=== PATIENT | male | born 1970 | race Caucasian/White ===

== ENCOUNTER 2023-08-29 14:47 | Outpatient (AMB) | payer OTHER, SELFPAY ==
[2023-08-29 15:01] VITALS: BP 114/80; PULSE 80; O2SAT 95; BMI 30.3
--- NOTE | 2023-08-29 15:01 | HO.NEPHOV_ITS ---
HPI HPI Comments History of Present Illness Details I had the delight of seeing James in consultation for labile blood pressure. 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 He has been having left-sided chest pain with arm pain and was seen in [facility] and [facility] emergency room. It was deemed as musculoskeletal pain by both emergency rooms after obtaining EKG enzymes and routine blood work. His blood pressure at times was on the higher side but has come down with improvement in pain. He has not gone for physical therapy yet. He denies smoking or drug use. He consumes excess amount of salt and beer. He does not have any shortness of breath, proximal nocturnal dyspnea, orthopnea, pedal edema, urinary symptoms. His renal functions have been normal. He is not known to have any proteinuria, hypokalemia or hypercalcemia. He has no uncontrolled thyroid disorders. His thinks he snores a lot especially when he drinks heavily. He also had been getting some headache in the nape of the neck when his blood pressure was going up which is not bear the time of this office visit. He has not seen his primary care physician for a while. [facility] Medical History (Updated 08/29/23 @ 15:54 by Zen Donnelly MD) Hypertension Surgical History (Updated 08/29/23 @ 15:06 by Ifrah Roa MA) Hx of appendectomy Family History (Updated 08/29/23 @ 15:06 by Ifrah Roa MA) Mother Colon cancer Social History (Updated 08/29/23 @ 15:06 by Ifrah Roa MA) Alcohol intake: current Patient Tobacco Use Status: Never used Tobacco Vital Signs 08/29/23 15:01 Height 5 ft 9 in Weight 205 lb 6 oz BMI 30.3 BP 114/80 Blood Pressure Location Lt brachial Position Sitting Pulse 80 Pulse Source Pulse Oximeter Pulse Oximetry (%) 95 Oxygen Delivery Method Room Air Physical Exam Vital Signs: Last Vital Signs Pulse 80 08/29/23 15:01 BP 114/80 08/29/23 15:01 Pulse Ox 95 08/29/23 15:01 Oxygen Delivery Method Room Air 08/29/23 15:01 BMI result Body Mass Index 30.3 Const General: comfortable and no acute distress Orientation/consciousness: patient oriented x3 HEENT Head: Yes normocephalic Mouth: Normal oral and palatal mucosa present Eyes EOM: EOMs intact bilaterally Neck Neck: Yes supple Resp Auscultation: clear to auscultation bilaterally Cardio Jugular venous distension: no JVD Rate: regular rate GI Palpation (GI): Soft to palpation Auscultation: normal bowel sounds General: Yes no CVA tenderness Back/Spine/Pelvis Back: no CVA tenderness Skin General skin exam: no rashes or lesions noted Neuro General: patient oriented x3 and moves all extremities Extrem General: Yes no pedal edema Assessment & Plan Assessment & Plan (1) 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 He denies using excessive nonsteroidal anti-inflammatory medications. He consumes excess salt and drinks a lot of beer. He has gained some weight. His renal functions have been normal. He does not have any retinopathy, nephropathy ventricular hypertrophy or proteinuria. His repeat blood pressure by me in the office was 130/80 mm Hg left arm sitting position. I asked him to lose weight, cut back sodium in the diet and cut back drinking beer. He is not a smoker and has no peripheral arterial disease. I did not initiate him on any medications but will do further workup including 24 hour blood pressure monitor in the near future based on evolving clinical data. I answered all his and his 's questions. Follow-up given. Coding Level of Care Code New Pt Level 4 (01513) Diagnoses Labile hypertension due to clinical environment R09.89 Results Reviewed Nephrology Results: No Data to Display
== END 2023-08-29 15:38 | disposition home or self-care (01) ==
PROVIDERS: PCP Internal Medicine; Visit Provider Internal Medicine Nephrology
DX: R09.89 Other specified symptoms and signs involving the circulatory and respiratory systems (principal)
CPT/HCPCS: 99204

== ENCOUNTER → 2023-08-29 14:47 | Outpatient (BNVA) | payer OTHER, SELFPAY | PROVIDERS: PCP Internal Medicine; Visit Provider Internal Medicine Nephrology ==

== ENCOUNTER 2023-12-05 15:54 | Outpatient (AMB) | payer OTHER, SELFPAY ==
--- NOTE | 2023-12-05 16:24 | HO.NEPHOV ---
Vital Signs 12/05/23 16:26 Height 5 ft 9 in Weight 199 lb 8 oz BMI 29.5 BP 120/80 Blood Pressure Location Lt brachial Position Sitting Pulse 77 Pulse Source Pulse Oximeter Pulse Oximetry (%) 96 Oxygen Delivery Method Room Air Intake Visit Reasons: Uncontrollable BP/ Confirmed Straight Cutter Required: No Accompanied by: Spouse Allergies No Known Allergies Allergy (Verified 12/05/23 16:28) HPI Comments Details: I had the delight of seeing James in follow up for labile blood pressure. 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 He had left-sided chest pain with arm pain and was seen in [facility] emergency room. It was deemed as musculoskeletal pain by both emergency rooms after obtaining EKG enzymes and routine blood work. His blood pressure at times was on the higher side but has come down with improvement in pain. He has not gone for physical therapy yet. He denies smoking or drug use. He consumes excess amount of salt and beer. He does not have any shortness of breath, proximal nocturnal dyspnea, orthopnea, pedal edema, urinary symptoms. His renal functions have been normal. He is not known to have any proteinuria, hypokalemia or hypercalcemia. He has no uncontrolled thyroid disorders. His thinks he snores a lot especially when he drinks heavily. [facility] Medical History (Updated 08/29/23 @ 15:54 by Zne Donnelly MD) Hypertension Surgical History Hx of appendectomy Family History Mother Colon cancer Social History Alcohol intake: current Patient Tobacco Use Status: Never used Tobacco Physical Exam Vital Signs: Last Vital Signs Pulse 77 12/05/23 16:26 BP 120/90 H 12/05/23 16:26 Pulse Ox 96 12/05/23 16:26 Oxygen Delivery Method Room Air 12/05/23 16:26 BMI result Body Mass Index 29.5 Const General: comfortable and no acute distress Orientation/consciousness: patient oriented x3 HEENT Head: Yes normocephalic Mouth: Normal oral and palatal mucosa present Eyes EOM: EOMs intact bilaterally Neck Neck: Yes supple Resp Auscultation: clear to auscultation bilaterally Cardio Jugular venous distension: no JVD Rate: regular rate GI Palpation (GI): Soft to palpation Auscultation: normal bowel sounds General: Yes no CVA tenderness Back/Spine/Pelvis Back: no CVA tenderness Skin General skin exam: no rashes or lesions noted Neuro General: patient oriented x3 and moves all extremities Extrem General: Yes no pedal edema Results Reviewed Nephrology Results: No Data to Display Assessment & Plan Assessment & Plan (1) Labile hypertension due to clinical environment: Code(s): R09.89 - Other specified symptoms and signs involving the circulatory and respiratory systems Category: Medical Plan James has had multiple high blood pressure readings especially when he had arm pain. He denies using excessive nonsteroidal anti-inflammatory medications. He consumes excess salt and drinks a lot of beer. He has gained some weight which he needs lose. His renal functions have been normal. He does not have any retinopathy, nephropathy ventricular hypertrophy or proteinuria. I asked him to lose weight, cut back sodium in the diet and cut back drinking beer. He is not a smoker and has no peripheral arterial disease. I did not initiate him on any medications but will do further workup including 24 hour blood pressure monitor in the near future based on evolving clinical data. I answered all his and his 's questions. Follow-up given Coding Level of Care Code Est Pt Level 4 (08760) Diagnoses Labile hypertension due to clinical environment R09.89
[2023-12-05 16:26] VITALS: BP 120/80; PULSE 77; O2SAT 96; BMI 29.5
== END 2023-12-05 16:55 | disposition home or self-care (01) ==
PROVIDERS: PCP Internal Medicine; Visit Provider Internal Medicine Nephrology
DX: R09.89 Other specified symptoms and signs involving the circulatory and respiratory systems (principal)
CPT/HCPCS: 99214

== ENCOUNTER → 2023-12-05 15:54 | Outpatient (BNVA) | payer OTHER, SELFPAY | PROVIDERS: PCP Internal Medicine; Visit Provider Internal Medicine Nephrology ==

== ENCOUNTER 2024-05-29 08:48 | Outpatient (REF) | payer OTHER, SELFPAY ==
[2024-05-29 11:12] LABS: MANUAL DIFF FLAG NO
[2024-05-29 11:17] LABS: Basophils Absolute Auto 0.1 X10*3/uL (0.0-0.2); Basophils Percent Auto 0.9 % (0-2); Eosinophils Absolute Auto 0.2 X10*3/uL (0.0-0.4); Eosinophils Percent Auto 3.6 % (0-4); Hematocrit 40.4 % (42.0-52.0); Hemoglobin 13.6 g/dl (14.0-18.0); Imm Gran Abs Auto 0.03 X10*3/uL (0.00-0.03); Imm Gran Pct Auto 0.5 % (0.0-0.4); Lymphocytes Absolute Auto 2.5 X10*3/uL (1.2-4.9); Lymphocytes Percent Auto 44.1 % (20-40); Mean Corpuscular HGB Conc 33.7 g/dl (31.0-36.0); Mean Corpuscular Hemoglobin 29.2 pg (27.0-33.0); Mean Corpuscular Volume 86.7 fL (80.0-98.0); Mean Platelet Volume 10.2 fL (9.4-12.4); Monocytes Absolute Auto 0.7 X10*3/uL (0.1-1.2); Monocytes Percent Auto 11.7 % (2-11); Neutrophils Absolute Auto 2.2 x10*3/uL (2.0-8.3); Neutrophils Percent Auto 39.2 % (45-73); Platelet Count 418 X10*3/uL (160-400); Red Blood Count 4.66 X10*6/uL (4.60-5.80); Red Cell Distribution Width 12.6 % (11.0-16.0); White Blood Count 5.6 X10*3/uL (4.8-10.8)
[2024-05-29 11:29] LABS: Estimated Average Glucose 105 mg/dL; Hemoglobin A1C 119.9909 umol/L; Hemoglobin A1c % 5.3 % (<6.0); Total Hemoglobin (HGBA1C) 3500.8121 umol/L
[2024-05-29 12:25] LABS: Alanine Aminotransferase 46 U/L (0-40); Alkaline Phosphatase 77 U/L (39-117); Anion Gap 12 (12-20); Aspartate Amino Transferase 33 U/L (5-37); Bilirubin Total 0.4 mg/dL (0.0-1.0); Blood Urea Nitrogen 15 mg/dL (9-16); Calcium 9.2 mg/dL (8.4-10.2); Carbon Dioxide 26 mmol/L (22-29); Chloride 106 mmol/L (96-108); Cholesterol 152 mg/dL (<200); Estimated Glomerular Filt Rate > 60; Glucose Random 96 mg/dL (60-115); HDL Cholesterol 56 mg/dL (>40); LDL Cholesterol Calculated 84 mg/dL (<100); Potassium 4.2 mmol/L (3.3-5.1); Sodium 140 mmol/L (135-145); Total Protein 7.4 g/dL (6.5-8.0); Triglycerides 62 mg/dL (<150)
[2024-05-29 12:42] LABS: TSH reflex Free T4 2.96 uIU/mL (0.32-4.0)
[2024-05-29 12:44] LABS: HIV AB/AG Nonreactive (Nonreactive); HIV Num 1 0.04 S/CO (0.00-0.99); ~HepC Num1 0.16 S/CO (0.00-0.79); ~Hepatitis C Antibody Nonreactive (Nonreactive)
== END 2024-05-29 08:49 | disposition home or self-care (01) ==
LOC: HO.HHCL 08:48
PROVIDERS: Visit Provider Internal Medicine
DX: Z00.00 Encounter for general adult medical examination without abnormal findings (principal); Z13.1 Encounter for screening for diabetes mellitus; Z13.89 Encounter for screening for other disorder
CPT/HCPCS: 36415; 80053; 80061; 82306; 83036; 84443; 85025; 86803; 87389

== ENCOUNTER 2024-06-04 15:54 | Outpatient (AMB) | payer OTHER, SELFPAY ==
--- NOTE | 2024-06-04 16:04 | HO.NEPHOV_ITS ---
Vital Signs 06/04/24 16:07 Height 5 ft 9 in Weight 203 lb 2 oz BMI 30.0 BP 122/80 Blood Pressure Location Lt brachial Position Sitting Pulse 75 Pulse Source Pulse Oximeter Pulse Oximetry (%) 96 Oxygen Delivery Method Room Air Intake Visit Reasons: 6 mon follow up-Conf Photographic Double Required: No Accompanied by: Self / Same As Patient Allergies No Known Allergies Allergy (Verified 06/04/24 16:09) HPI Comments Details: I had the delight of seeing James in follow up for labile blood pressure. 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 He denies smoking or drug use. He consumes excess amount of salt and beer. He does not have any shortness of breath, proximal nocturnal dyspnea, orthopnea, pedal edema, urinary symptoms. His renal functions have been normal. He is not known to have any proteinuria, hypokalemia or hypercalcemia. He has no uncontrolled thyroid disorders. His thinks he snores a lot especially when he drinks heavily. [facility] Medical History (Updated 08/29/23 @ 15:54 by Zen Donnelly MD) Hypertension Surgical History Hx of appendectomy Family History Mother Colon cancer Social History Alcohol intake: current Patient Tobacco Use Status: Never used Tobacco Review of Systems Const All systems reviewed & are unremarkable except as noted in HPI and below Physical Exam Vital Signs: Last Vital Signs Pulse 75 06/04/24 16:07 BP 122/80 06/04/24 16:07 Pulse Ox 96 06/04/24 16:07 Oxygen Delivery Method Room Air 06/04/24 16:07 BMI result Body Mass Index 30.0 Const General: comfortable and no acute distress Orientation/consciousness: patient oriented x3 HEENT Head: Yes normocephalic Mouth: Normal oral and palatal mucosa present Eyes EOM: EOMs intact bilaterally Neck Neck: Yes supple Resp Auscultation: clear to auscultation bilaterally Cardio Jugular venous distension: no JVD Rate: regular rate GI Palpation (GI): Soft to palpation Auscultation: normal bowel sounds General: Yes no CVA tenderness Back/Spine/Pelvis Back: no CVA tenderness Skin General skin exam: no rashes or lesions noted Neuro General: patient oriented x3 and moves all extremities Extrem General: Yes no pedal edema Results Reviewed Nephrology Results: Hgb 13.6 g/dl (14.0-18.0) L 05/29/24 WBC 5.6 X10*3/uL (4.8-10.8) 05/29/24 Plt Count 418 X10*3/uL (160-400) H 05/29/24 Sodium 140 mmol/L (135-145) 05/29/24 Potassium 4.2 mmol/L (3.3-5.1) 05/29/24 Chloride 106 mmol/L (96-108) 05/29/24 Carbon Dioxide 26 mmol/L (22-29) 05/29/24 BUN 15 mg/dL (9-16) 05/29/24 Creatinine 0.84 mg/dL (0.5-1.4) 05/29/24 Calcium 9.2 mg/dL (8.4-10.2) 05/29/24 Assessment & Plan Assessment & Plan (1) Labile hypertension due to clinical environment: Code(s): R09.89 - Other specified symptoms and signs involving the circulatory and respiratory systems Category: Medical Plan James has had multiple high blood pressure readings in the past especially when he had arm pain. He denies using excessive nonsteroidal anti-inflammatory medications. He consumes excess salt and drinks a lot of beer. His renal functions have been normal. He does not have any retinopathy, nephropathy ventricular hypertrophy or proteinuria. I asked him to lose weight, cut back sodium in the diet and cut back drinking beer. He is not a smoker and has no peripheral arterial disease. I did not initiate him on any medications but will do further workup including 24 hour blood pressure monitor in the near future based on evolving clinical data. I answered all his questions. Follow-up given Coding Level of Care Code Est Pt Level 4 (23036) Diagnoses Labile hypertension due to clinical environment R09.89
[2024-06-04 16:07] VITALS: BP 122/80; PULSE 75; O2SAT 96
== END 2024-06-04 16:20 | disposition home or self-care (01) ==
LOC: HO.HKAS 15:55
PROVIDERS: PCP Internal Medicine; Visit Provider Internal Medicine Nephrology
DX: R09.89 Other specified symptoms and signs involving the circulatory and respiratory systems (principal)
CPT/HCPCS: 99214

== ENCOUNTER → 2024-06-04 15:54 | Outpatient (BNVA) | payer OTHER, SELFPAY | PROVIDERS: PCP Internal Medicine; Visit Provider Internal Medicine Nephrology ==

== ENCOUNTER 2024-12-05 15:50 | Outpatient (AMB) | payer OTHER, SELFPAY ==
--- NOTE | 2024-12-05 15:52 | HO.NEPHOV_ITS ---
Vital Signs 12/05/24 15:54 Height 5 ft 9 in Weight 202 lb BMI 29.8 BP 130/80 Blood Pressure Location Lt brachial Position Sitting Pulse 76 Pulse Source Pulse Oximeter Pulse Oximetry (%) 96 Oxygen Delivery Method Room Air Intake Visit Reasons: 6mon follow up-Conf Cleaner Furniture Required: No Accompanied by: Self / Same As Patient Allergies No Known Allergies Allergy (Verified 12/05/24 15:53) HPI Comments Details: I had the delight of seeing James in follow up for labile blood pressure. 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 He denies smoking or drug use. He consumes excess amount of salt and beer. He does not have any shortness of breath, proximal nocturnal dyspnea, orthopnea, pedal edema, urinary symptoms. His renal functions have been normal. He is not known to have any proteinuria, hypokalemia or hypercalcemia. He has no uncontrolled thyroid disorders. His thinks he snores a lot especially when he drinks heavily. [facility] Medical History (Updated 08/29/23 @ 15:54 by Zen Donnelly MD) Hypertension Surgical History Hx of appendectomy Family History Mother Colon cancer Social History Alcohol intake: current Patient Tobacco Use Status: Never used Tobacco Review of Systems Const All systems reviewed & are unremarkable except as noted in HPI and below Physical Exam Vital Signs: Last Vital Signs Pulse 76 12/05/24 15:54 BP 130/80 12/05/24 15:54 Pulse Ox 96 12/05/24 15:54 Oxygen Delivery Method Room Air 12/05/24 15:54 BMI result Body Mass Index 29.8 Const General: comfortable and no acute distress Orientation/consciousness: patient oriented x3 HEENT Head: Yes normocephalic Mouth: Normal oral and palatal mucosa present Eyes EOM: EOMs intact bilaterally Neck Neck: Yes supple Resp Auscultation: clear to auscultation bilaterally Cardio Jugular venous distension: no JVD Rate: regular rate GI Palpation (GI): Soft to palpation Auscultation: normal bowel sounds General: Yes no CVA tenderness Back/Spine/Pelvis Back: no CVA tenderness Skin General skin exam: no rashes or lesions noted Neuro General: patient oriented x3 and moves all extremities Extrem General: Yes no pedal edema Results Reviewed Nephrology Results: Hgb 13.6 g/dl (14.0-18.0) L 05/29/24 WBC 5.6 X10*3/uL (4.8-10.8) 05/29/24 Plt Count 418 X10*3/uL (160-400) H 05/29/24 Sodium 140 mmol/L (135-145) 05/29/24 Potassium 4.2 mmol/L (3.3-5.1) 05/29/24 Chloride 106 mmol/L (96-108) 05/29/24 Carbon Dioxide 26 mmol/L (22-29) 05/29/24 BUN 15 mg/dL (9-16) 05/29/24 Creatinine 0.84 mg/dL (0.5-1.4) 05/29/24 Calcium 9.2 mg/dL (8.4-10.2) 05/29/24 Assessment & Plan Assessment & Plan (1) Labile hypertension due to clinical environment: Code(s): R09.89 - Other specified symptoms and signs involving the circulatory and respiratory systems Category: Medical Plan James has had multiple high blood pressure readings in the past especially when he had arm pain. He denies using excessive nonsteroidal anti-inflammatory medications. He consumes excess salt and drinks a lot of beer. His renal functions have been normal. He does not have any retinopathy, nephropathy ventricular hypertrophy or proteinuria. I asked him to lose weight, cut back sodium in the diet and cut back drinking beer. He is not a smoker and has no peripheral arterial disease. I did not initiate him on any medications but will do further workup including 24 hour blood pressure monitor in the near future based on evolving clinical data. I answered all his questions. Follow-up given Coding Level of Care Code Est Pt Level 4 (41990) Diagnoses Labile hypertension due to clinical environment R09.89
[2024-12-05 15:54] VITALS: BP 130/80; PULSE 76; O2SAT 96; BMI 29.8
--- OUTSIDE RECORDS SUMMARY | 2024-12-05 17:24 | XMS_ITS | Clinical Summary ---
Author Organization [employer] Address [address] [place] [address] Care Team Providers Care Cognos Consultant Name Role Phone Radha Cook MD Primary Care Provide r Allergies No known active allergies Medications Blood Pressure Monitoring (Blood Pressure Cuff) miscIndications: Elevated blood pressure reading 1 each Once daily. 1 each 05/23/2024 Active Active Problems Problem Noted Date Diagnosed Date Colon cancer screening 05/23/2024 Elevated blood pressure reading 05/23/2024 Assessment & Plan (05/23/2024 12:22 PM EDT): Monitor BP at home and log it I advise low na diet and weight reduction RTC 2 weeks Health care maintenance 05/23/2024 Pain of right heel 05/23/2024 Immunizations Name Administration Dates Next Due Influenza, seasonal, injectable, preservative fr ee 05/23/2024 Pfizer Covid-19 Vaccine 12+ 05/23/2024 Social History Tobacco Use Types Packs/Day Years Used Date Smoking Tobacco: Never Passive Smoke Exposure: Never Smokeless Tobacco: Never Tobacco Cessation:Counseling Given: Not Answered Alcohol Use Standard Drinks/Week Comments Never 0 (1 standard drink = 0.6 oz pur e alcohol) Alcohol Answer Date Recorded How often do you have a drink containing alcohol ? 2 05/23/2024 How many drinks containing a lcohol do you have on a typical day when you are drinking? 1 05/23/2024 How often do you have six or more drinks on one occasion? 1 05/23/2024 Score 1 05/23/2024 Depression Answer Date Recorded Patient Health Questionnaire-9 Score 0 05/23/2024 Patient Health Questionnaire-9 Score 0 05/23/2024 Last PHQ-9: Questionnaire Data Not on file 1 Housing Stability Answer Date Recorded What is your housing situation today? I have bella haines 05/23/[address] you li ve. Do you have problems with any of the following? None of the above 05/23/2024 Food Insecurity Answer Date Recorded Within the past 12 months, y ou worried that your food would run out before you got money to buy more: Never True 05/23/2024 Within the past 12 months,th e food you bought just didn't last and you didn't have enough money to get more: Never True Transportation Answer Date Recorded In the past 12 months, has l ack of transportation kept you from medical appts, meetings, work or from getting things needed for daily living? No 05/23/2024 Utilities Answer Date Recorded In the past 12 months, has t he electric, gas, oil or water company threatened to shut off services in your home? No 05/23/2024 Depression Answer Date Recorded Patient Health Questionnaire-2 Score 0 05/23/2024 Internet Access Answer Date Recorded Internet Access Q1 No 05/23/2024 Internet Access Q2 I do not want or need it 05/07 Sex and Gender Information Value Date Recorded Sex Assigned at Male 10/26/2023 5:57 PM EDT Legal Sex Male 5:56 PM EDT Gender Identity Male 10/26/2023 5:57 PM EDT Sexual Orientation Don't know 10/26/2023 5: 57 PM EDT Last Filed Vital Signs Vital Sign Reading Time Taken Comments Blood Pressure 153/90 05/23/2024 10:33 AM EDT Pulse 67 05/23/2024 10:33 AM EDT Temperature 36.6 ??C (97.9 ??F) 05/23/2024 10:33 AM E DT Respiratory Rate 16 05/23/2024 10:33 AM EDT Oxygen Saturation 98% 05/23/2024 10:33 AM EDT Inhaled Oxygen Concentration - - Weight 91.6 kg (202 lb) 05/23/2024 10:33 AM EDT Height 175.3 cm (5' 9 ) 05/23/2024 10:33 AM EDT Body Mass Index 29.83 05/23/2024 10:33 AM EDT Plan of Treatment Health Maintenance Due Date Last Done Comments CT Colonography 1970 FIT DNA/Cologuard 1970 FIT 1970 FOBT 1970 Sigmoidoscopy 1970 DTaP/Tdap/Td Vaccines (1 - Tdap) 1989 Hepatitis B Vaccines (1 of 3 - 19+ 3-dose series) 1989 Pneumococcal Vaccine: 50+ Years (1 of 1 - PCV) 2020 Zoster Vaccines (1 of 2) 2020 Alcohol/Substance Use Screening 05/23/2025 05/23/2024 Depression Screening 05/23/2025 05/23/2024, 05/23/2024 SDOH Screening 05/23/2025 05/23/2024 Tobacco Screening 05/23/2025 05/23/2024 Colonoscopy 10/23/2027 Colorectal Cancer Screening 10/23/2027 Lipid Panel 05/29/2029 05/29/2024 RSV Patients and Patients Aged 60 years or older (1 - 1-dose 75+ series) 2045 COVID-19 Vaccine Completed 05/23/2024, 03/06/2021, 02/13/2021 Influenza Vaccine Completed 05/23/2024 HIV Screening Completed 05/29/2024 Hepatitis C Screening Completed 05/29/2024 HIB Vaccines Aged Out No longer eligi ble based on patient's age to complete this topic HPV Vaccines Aged Out No longer eligi ble based on patient's age to complete this topic Hepatitis A Vaccines Aged Out No long er eligible based on patient's age to complete this topic IPV Vaccines Aged Out No longer eligi ble based on patient's age to complete this topic Meningococcal Vaccine Aged Out No raudel joanna eligible based on patient's age to complete this topic RSV under 20 months Aged Out No longe r eligible based on patient's age to complete this topic Rotavirus Vaccines Aged Out No longer eligible based on patient's age to complete this topic Procedures Procedure Name Priority Date/Time Associated Diagnosis Comments HEPATITIS C AB W/REFL TO HCV RNA, QN, PCR Routine 05/29/2024 8:50 AM EDT Health care maintenance HIV 1/2 ANTIGEN/ANTIBODY, FOURTH GENERATION W/RFL Routine 05/29/2024 8:50 AM EDT Health care maintenance LIPID PANEL, STANDARD Routine 05/29/2024 8:50 AM EDT Health care maintenance from Last 3 Months or Most Recently Relevant to Health Maintenance Results * Hepatitis C Antibody with Reflex to HCV, RNA, Quantitative, Real-Time PCR (05/29/2024 8:50 AM EDT) Hepatitis C Antibody Nonreactive Nonreactive [facility] Comment:Antibodies to HCV no t detected; does not exclude early acuteHCV infection. Blood Venous blood specimen / Unknown 05/29/2024 8:50 AM EDT 05/29/2024 11:06 AM EDT Radha Myers MD LAB BLOOD ORDERABLES Final Result [facility] [address] [place] [address] [phone] * HIV-1/2 Antigen and Antibodies, Fourth Generation, with Reflexes (05/29/2024 8:50 AM EDT) HIV AB/AG Nonreactive Nonreactive [facility] Comment:HIV-1 p24 Ag and/or HIV-1/HIV-2 Ab not detected.A test result that is nonreactive does not exclude thepossibility of exposure to or infection with HIV-1 and/orHIV-2. Nonreactive results in this assay for individualswith prior exposure to HIV-1 and/or HIV-2 may be due toantigen and antibody levels that are below the limit ofdetection of this assay.[employer] HIV Ag/Ab Combo assay result andsupplemental assay results should be interpreted inconjunction with the patient's clinical presentation,history and other laboratory results. If the results areinconsistent with clinical evidence, additional testing issuggested to confirm the result. Blood Venous blood specimen / Unknown 05/29/2024 8:50 AM EDT 05/29/2024 11:06 AM EDT us Radha Myers MD LAB BLOOD ORDERABLES Final Result Performing Organization Address [facility] Co de Phone Number [facility] [address] [place] [address] [phone] * Lipid Panel, Standard (05/29/2024 8:50 AM EDT) Triglycerides 62 <150 mg/dL [facility] Comment:Desirable Triglyceri de: less than 150 mg/dLBorderline High Triglyceride 150-199 mg/dLHigh Triglyceride: 200-499 mg/dLVery High Triglyceride: greater than or equal to 5OO mg/dL Cholesterol 152 <200 mg/dL [facility] Comment:Desirable Cholestero l: less than 200 mg/dLBorderline High Cholesterol: 200-239 mg/dLHigh Cholesterol: greater than 239 mg/dL LDL Cholesterol Calculated 84 <100 mg/dL [facility] Comment:Desirable LDL: less than 100 mg/dLNear Optimal/Above Optimal LDL: 110- 129 mg/dLBorderline High LDL: 130-159 mg/dLHigh LDL: 160-189 mg/dLVery High LDL: greater than or equal to 190 mg/dL HDL Cholesterol 56 >40 mg/dL [facility] Comment:Desirable HDL: great er than 40 mg/dL Note: This HDL assay may give artificially low results in patients with liver disease. Blood Venous blood specimen / Unknown 05/29/2024 8:50 AM EDT 05/29/2024 11:12 AM EDT us Radha Myers MD LAB BLOOD ORDERABLES Final Result Performing Organization Address [facility]/ZIP Co de Phone Number [facility] [address] [place] [address] [phone] from Last 3 Months or Most Recently Relevant to Health Maintenance Insurance [facility] , [address] [place] [address] Care Teams Cognos Consultant Relationship Specialty Start Date End Date Radha Cook MD [address] [place] [phone] PCP - General Internal Medicine 05/23/24
--- OUTSIDE RECORDS SUMMARY | 2024-12-05 17:24 | XMS_ITS | Encounter Summary ---
Author Organization [facility] Address [address] [place] [address] Care Team Providers Care Food Service Supervisor Name Role Phone Radha Cook MD Primary Care Provide r Reason for Referral * Imaging (Routine) - Pending Review Specialty Diagnoses / Procedures Referred By Contac t Referred To Contact Radiology Diagnoses Chronic pain of left knee Procedures MR Knee wo Contrast Left Liz Covington MD [address] [address] Phone: tel: fax: [address] [address] Phone: tel: Referral ID Status Reason Start Date Expiration Date V isits Requested Visits Authorized [id number] Pending Review 11/21/2024 11/21/2025 1 1 Reason for Visit * Imaging (Routine) - Pending Review Specialty Diagnoses / Procedures Referred By Contac t Referred To Contact Radiology Diagnoses Chronic pain of left knee Procedures MR Knee wo Contrast Left Liz Covington MD [address] [address] Phone: tel: fax: [address] [address] Phone: tel: Referral ID Status Reason Start Date Expiration Date V isits Requested Visits Authorized [id number] Pending Review 11/21/2024 11/21/2025 1 1 Encounter Details Date Type Department Care Team (Latest Contact Info) Description 11/29/2024 5:52 PM EDT - 11/29/2024 11:59 PM EDT Hospital Encounter [facility] MRI [address] [place] [address] Chronic pain of left knee Discharge Disposition: Home or Self Care Social History Tobacco Use Types Packs/Day Years Used Date Smoking Tobacco: Never Smokeless Tobacco: Never Alcohol Use Standard Drinks/Week Comments Yes 2 (1 standard drink = 0.6 oz pur e alcohol) Interpersonal Safety Answer Date Record ed Physical Abuse 10/22/2024 Verbal Abuse 10/22/2024 Sex and Gender Information Value Date Recorded Sex Assigned at Male 10/19/2024 8:08 PM EDT Legal Sex Male 12:53 PM EST Gender Identity Male 10/22/2024 1:19 PM EDT Sexual Orientation Straight 10/22/2024 1: 19 PM EDT documented as of this encounter Discharge Disposition Disposition Code Departure Means Destination Home or Self Care documented in this encounter Plan of Treatment Upcoming Encounters Date Type Department Care Team (Late st Contact Info) Description 12/24/2024 1:15 PM EDT Office Visit [facility] [address] [phone] Pollo Alcantara DPM [address] [address] 01/07/2025 2:00 PM EDT Office Visit [facility]opedic [facility] [address] [phone] Liz Covington MD [address] [address] documented as of this encounter Procedures Procedure Name Priority Date/Time Associated Diagnosis Comments MR KNEE WO CONTRAST LEFT Routine 11/29/2024 6:40 PM EDT Chronic pain of left knee documented in this encounter Results * MR Knee wo Contrast Left (11/29/2024 6:40 PM EDT) Anatomical Region Laterality Modality Lower Extremities, Knee Left Magnetic Resonance 11/30/2024 10:2 0 AM EDT Impressions 11/30/2024 10:33 AM EDT Focal edema in the superolateral aspect of Hoffa's fat pad suggesting patellar-lateral femoral condyle friction syndrome. Additional findings above. -------- FINAL REPORT -------- Dictated By: Mayur Wilcox Dictated Date: 11/30/2024 10:20 ET Assigned Physician: Mayur Wilcox Reviewed and Electronically Signed By: Mayur Wilcox Signed Date: 11/30/2024 10:33 ET Workstation ID: [id number] Transcribed By: Self Edit Transcribed Date: 11/30/2024 10:20 ET Narrative 11/30/2024 10:33 AM EDT PROCEDURE: MRI of the left knee without contrast. HISTORY: Knee instability Left knee pain- eval for Lateral meniscus tear displaced into gutter. COMPARISON: TECHNIQUE: Multiplanar multisequence MRI of the left knee without intravenous contrast administration. FINDINGS: MENISCI: Medial: There is undersurface irregularity of the anterior inferior medial meniscus. ??No displaced tear. ??There is some small cysts near its anterior root attachment nonspecific. Lateral: No displaced tear CRUCIATE LIGAMENTS: Posterior cruciate ligament is intact. ??There is some irregularity of the anterior cruciate ligament which could represent sequelae of prior injury however the anterior cruciate ligament is intact. COLLATERAL LIGAMENTS: The medial collateral ligament and lateral collateral ligamentous complex are intact. EXTENSOR: The extensor mechanism is intact. ??There is some edema within the superolateral portion of the infrapatellar fat pad which could represent sequelae of patellofemoral maltracking. ARTICULAR CARTILAGE: Lateral compartment: no full thickness defect. Medial compartment: No full thickness defect. Patellofemoral compartment: Normal. BONES: Multiple cysts within the anterior tibia. ??No acute fracture.. OTHER: Possible small ganglion at the popliteus musculotendinous junction. Procedure Note Mayur Wilcox MD - 11/30/2024 PROCEDURE: MRI of the left knee without contrast. HISTORY: Knee instability Left knee pain- eval for Lateral meniscus tear displaced into gutter. COMPARISON: TECHNIQUE: Multiplanar multisequence MRI of the left knee withoutintravenous contrast administration. FINDINGS: MENISCI: Medial: There is undersurface irregularity of the anterior inferior medialmeniscus. No displaced tear. There is some small cysts near its anteriorroot attachment nonspecific. Lateral: No displaced tear CRUCIATE LIGAMENTS: Posterior cruciate ligament is intact. There is someirregularity of the anterior cruciate ligament which could representsequelae of prior injury however the anterior cruciate ligament isintact. COLLATERAL LIGAMENTS: The medial collateral ligament and lateralcollateral ligamentous complex are intact. EXTENSOR: The extensor mechanism is intact. There is some edema withinthe superolateral portion of the infrapatellar fat pad which couldrepresent sequelae of patellofemoral maltracking. ARTICULAR CARTILAGE: Lateral compartment: no full thickness defect. Medial compartment: No full thickness defect. Patellofemoral compartment: Normal. BONES: Multiple cysts within the anterior tibia. No acute fracture.. OTHER: Possible small ganglion at the popliteus musculotendinousjunction. IMPRESSION: Focal edema in the superolateral aspect of Hoffa's fat pad suggestingpatellar- lateral femoral condyle friction syndrome. Additional findings above. -------- FINAL REPORT -------- Dictated By: Mayur Wilcox Dictated Date: 11/30/2024 10:20 ET Assigned Physician: Mayur Wilcox Reviewed and Electronically Signed By: Mayur Wilcox Signed Date: 11/30/2024 10:33 ET Workstation ID: [id number] Transcribed By: Self Edit Transcribed Date: 11/30/2024 10:20 ET us Liz Covington MD IMG MRI PROCEDURES Final Resul t documented in this encounter Visit Diagnoses Diagnosis Chronic pain of left knee documented in this encounter Care Teams Food Service Supervisor Relationship Specialty Start Date End Date Radha Cook MD [address] [place] [phone] PCP - General 05/24/24 documented as of this encounter
--- OUTSIDE RECORDS SUMMARY | 2024-12-05 17:24 | XMS_ITS | Clinical Summary ---
Author Organization [facility] Address [address] [place] [address] Phone Care Team Providers Care Palliative Medicine Physician Name Role Phone Radha Cook MD Primary Care Provide r Allergies No known active allergies Medications No known medications Encounters Date Type Department Care Team Description 11/29/2024 5:52 PM EDT - 11/29/2024 11:59 PM EDT Hospital Encounter [facility] MRI [address] [place] [phone] Chronic pain of left knee Discharge Disposition: Home or Self Care 11/21/2024 3:00 PM EDT Office Visit Orthopedic [facility] [address] 175 [facility] [address] [place] [phone] Liz Covington MD Chronic pain of left knee (Primary Dx) 10/24/2024 1:30 PM EDT Office Visit Orthopedic [facility] 250 [address] [facility] [address] [place] [phone] Pollo Alcantara DPM Plantar fascial fibromatosis (Primary Dx); Chronic pain of left knee; Equinus contracture of ankle; Arthritis of left foot 10/22/2024 3:05 PM EDT Anesthesia Event [facility] Endoscopy [address] [place] [phone] Zeus David MD 10/22/2024 1:25 PM EDT - 10/22/2024 11:59 PM EDT Hospital Encounter [facility] Endoscopy [address] [place] [phone] Bc Mathews DO Spencer, Mark A, MD Colon cancer screening Discharge Disposition: Home or Self Care 09/11/2024 3:45 PM EST Office Visit Orthopedic Surgery [facility] [address] [phone] Pollo Alcantara, DPM Plantar fascial fibromatosis (Primary Dx); Chronic pain of left knee; Equinus contracture of ankle from Last 3 Months Surgical History Surgery Date Site/Laterality Comments APPENDECTOMY Family History Relation Name Status Comments Mother H/O COLON CANCE R Social History Tobacco Use Types Packs/Day Years Used Date Smoking Tobacco: Never Smokeless Tobacco: Never Tobacco Cessation:Counseling Given: Not Answered Alcohol Use Standard Drinks/Week Comments Yes 2 [...] Orientation Straight 10/22/2024 1: 19 PM EDT Obstetrics History Last Filed Vital Signs Vital Sign Reading Time Taken Comments Blood Pressure 144/96 10/22/2024 3:41 PM EDT Pulse 61 10/22/2024 3:41 PM EDT Temperature 35.9 ??C (96.6 ??F) 10/22/2024 2:26 PM ED T Respiratory Rate 16 10/22/2024 3:41 PM EDT Oxygen Saturation 99% 10/22/2024 3:41 PM EDT Inhaled Oxygen Concentration - - Weight 83.9 kg (185 lb) 10/24/2024 1:08 PM EDT Height 172.7 cm (5' 7.99 ) 11/21/2024 3:04 PM ED T Body Mass Index 28.14 10/24/2024 1:08 PM EDT Plan of Treatment Upcoming Encounters Date Type Department Care Team (Late st Contact Info) Description 12/24/2024 1:15 PM EDT Office Visit Orthopedic Surgery [facility] [address] [phone] Pollo Alcantara, DPM 175 [facility] [address] [place] [address] 01/07/2025 2:00 PM EDT Office Visit Orthopedic Surgery - [place] 160 175 [facility] [address] [place] [phone] Liz Covington MD 175 [facility] [address] [place] [address] Health Maintenance Due Date Last Done Comments DTaP,Tdap,and Td Vaccines (1 - Tdap) 1989 Hepatitis B Vaccines (1 of 3 - 19+ 3-dose series) 1989 Pneumococcal Vaccine: 50+ Years (1 of 1 - PCV) 2020 Zoster Vaccines (1 of 2) 2020 Social Influencers of Health Screening 07/05/2022 Depression Screening 05/23/2025 05/23/2024 Colorectal Cancer Screening: Colonoscopy 10/23/2027 10/22/2024 Cholesterol Screening (Lipid Panel) 05/29/2029 05/29/2024 COVID-19 Vaccine Completed 05/23/2024, 03/06/2021, 02/13/2021 Influenza [...] on patient's age to complete this topic MMR Vaccines Aged Out No longer eligi ble based on patient's age to complete this topic Meningococcal ACWY Vaccine Aged Out N o longer eligible based on patient's age to complete this topic Meningococcal B Vaccine Aged Out No l onger eligible based on patient's age to complete this topic Pneumococcal Vaccine: Pediatrics (0 to 5 Years) and At-Risk Patients (6 to 64 Years) Aged Out No longer eligible b ased on patient's age to complete this topic RSV Immunization Patients Under 20 months Aged Out No longer eligible b ased on patient's age to complete this topic Varicella Vaccines Aged Out No longer eligible based on patient's age to complete this topic Procedures Procedure Name Priority Date/Time Associated Diagnosis Comments MR KNEE WO CONTRAST LEFT Routine 11/29/2024 6:40 PM EDT Chronic pain of left knee XR KNEE 3 VIEWS LEFT Routine 11/21/2024 3:14 PM EDT Chronic pain of left knee COLONOSCOPY Routine 10/22/2024 3:20 PM EDT Colon cancer screening TISSUE EXAM Routine 10/22/2024 3:11 PM EDT Colon cancer screening INJECTION TENDON OR LIGAMENT Routine 09/11/2024 3:45 PM EST Plantar fascial fibromatosis from Last 3 Months Results * MR Knee wo Contrast Left [...] Signed Date: 11/30/2024 10:33 ET Workstation ID: [id number] Transcribed By: Self Edit Transcribed Date: 11/30/2024 [...] Signed Date: 11/30/2024 10:33 ET Workstation ID: [id number] Transcribed By: Self Edit Transcribed Date: 11/30/2024 10:20 ET us Liz Covington MD IMG MRI PROCEDURES Final Resul t * XR Knee 3 Views Left (11/21/2024 3:14 PM EDT) Anatomical Region Laterality Modality Lower Extremities, Knee Left Computed Radiography 11/21/2024 3:21 PM EDT Impressions 11/21/2024 3:22 PM EDT No bony abnormality. -------- FINAL REPORT -------- Dictated By: Maxine Jesus Dictated Date: 11/21/2024 15:21 ET Assigned Physician: Maxine Jesus Reviewed and Electronically Signed By: Maxine Jesus Signed Date: 11/21/2024 15:22 ET Workstation ID: [id number] Transcribed By: Self Edit Transcribed Date: 11/21/2024 15:21 ET Narrative 11/21/2024 3:22 PM EDT XR KNEE 3 VIEWS LEFT Reason: Knee pain, initial exam left knee pain Comparison: None FINDINGS: No fracture. Normal alignment. Normal joint spaces. ??Small suprapatellar joint effusion. Procedure Note Maxine Jesus MD - 11/21/2024 XR KNEE 3 VIEWS LEFT Reason: Knee pain, initial exam left knee pain Comparison: None FINDINGS: No fracture. Normal alignment. Normal joint spaces. Small suprapatellarjoint effusion. IMPRESSION: No bony abnormality. -------- FINAL REPORT -------- Dictated By: Maxine Jesus Dictated Date: 11/21/2024 15:21 ET Assigned Physician: Maxine Jesus Reviewed and Electronically Signed By: Maxine Jesus Signed Date: 11/21/2024 15:22 ET Workstation ID: [id number] Transcribed By: Self Edit Transcribed Date: 11/21/2024 15:21 ET us Liz Covington MD IMG XR PROCEDURES Final Result * COLONOSCOPY Anesthesia - MAC; [facility] ENDOSCOPY (10/22/2024 3:20 PM EDT) Anatomical Region Laterality Modality Endoscopy 10/22/2024 2:56 PM EDT Impressions 10/22/2024 3:22 PM EDT - Hemorrhoids found on perianal exam. ? - Three 5 to 8 mm polyps in the sigmoid colon and in ? the ascending colon, removed with a cold snare. ? Resected and retrieved. ? - One 3 mm polyp in the transverse colon, removed with ? a jumbo cold forceps. Resected and retrieved. ? - The examination was otherwise normal on direct and ? retroflexion views. Recommendation: ?- - Discharge patient to home. ? - High fiber diet. ? - Continue present medications. ? - Await pathology results. ? - Repeat colonoscopy for surveillance based on ? pathology results. Narrative 10/22/2024 3:22 PM EDT [facility] GI Patient Name: James Hammond Procedure Date: 10/22/2024 2:56 PM Date of : 1970 Age: 54 Gender: Male Note Status: Finalized Attending MD: Bc Mathews DO, [id number] Procedure Date No Time: 10/22/2024 Procedure: ? Colonoscopy Indications: ? Screening in patient at increased risk: Colorectal ? cancer in mother before age 60 Providers: ? Bc Mathews DO Referring MD: ?Bc Mathews DO Medicines: ? Monitored Anesthesia Care Complications: ? No immediate complications. Estimated blood loss: ? Minimal. Estimated Blood Loss: ? Estimated blood loss was minimal. Procedure: ? Pre-Anesthesia Assessment: ? - - Prior to the procedure, a History and Physical was ? performed, and patient medications and allergies were ? reviewed. The patient is competent. The risks and ? benefits of the procedure and the sedation options and ? risks were discussed with the patient. All questions ? were answered and informed consent was obtained. ? Patient identification and proposed procedure were ? verified by the physician, the nurse, the ? anesthesiologist, the glassblower and the systems technician ? in the pre-procedure area in the endoscopy suite. ? Mental Status Examination: alert and oriented. Airway ? Examination: normal oropharyngeal airway and neck ? mobility. Respiratory Examination: clear to ? auscultation. CV Examination: normal. Prophylactic ? Antibiotics: The patient does not require prophylactic ? antibiotics. Prior Anticoagulants: The patient has ? taken no anticoagulant or antiplatelet agents. ASA ? Grade Assessment: II - A patient with severe systemic ? disease. After reviewing the risks and benefits, the ? patient was deemed in satisfactory condition to ? undergo the procedure. The anesthesia plan was to use ? monitored anesthesia care (MAC). Immediately prior to ? administration of medications, the patient was ? re-assessed for adequacy to receive sedatives. The ? heart rate, respiratory rate, oxygen saturations, ? blood pressure, adequacy of pulmonary ventilation, and ? response to care were monitored throughout the ? procedure. The physical status of the patient was ? re-assessed after the procedure. ? After I obtained informed consent, the scope was ? passed under direct vision. Throughout the procedure, ? the patient's blood pressure, pulse, and oxygen ? saturations were monitored continuously. The ? Colonoscope was introduced through the anus and ? advanced to the cecum, identified by appendiceal ? orifice and ileocecal valve. The colonoscopy was ? performed without difficulty. The patient tolerated ? the procedure well. The quality of the bowel ? preparation was good. Findings: ?Hemorrhoids were found on perianal exam. ? Three sessile polyps were found in the sigmoid colon ? and ascending colon. The polyps were 5 to 8 mm in ? size. These polyps were removed with a cold snare. ? Resection and retrieval were complete. Verification of ? patient identification for the specimen was done. ? Estimated blood loss was minimal. ? A 3 mm polyp was found in the transverse colon. The ? polyp was sessile. The polyp was removed with a jumbo ? cold forceps. Resection and retrieval were complete. ? Verification of patient identification for the ? specimen was done. Estimated blood loss was minimal. ? The exam was otherwise without abnormality on direct ? and retroflexion views. Procedure Code(s): ? --- Professional --- ? 10083, Colonoscopy, flexible; with removal of ? tumor(s), polyp(s), or other lesion(s) by snare ? technique ? 05839, 59, Colonoscopy, flexible; with biopsy, single ? or multiple Diagnosis Code(s): ? --- Professional --- ? D12.3, Benign neoplasm of transverse colon (hepatic ? flexure or splenic flexure) ? D12.2, Benign neoplasm of ascending colon ? D12.5, Benign neoplasm of sigmoid colon ? K64.9, Unspecified hemorrhoids ? Z80.0, Family history of malignant neoplasm of ? digestive organs CPT copyright 2020 [employer]. All rights reserved. The codes documented in this report are preliminary and upon welder plastic review may be revised to meet current compliance requirements. BC Mathews DO 10/22/2024 3:21:59 PM This report has been signed electronically.Bc Mathews DO Number of Addenda: 0 Note Initiated On: 10/22/2024 2:56 PM Scope Withdrawal Time: 0 hours 6 minutes 15 seconds Scope In: 3:09:11 PM Scope Out: 3:19:28 PM ? Endoscopy Department at [facility] - [address] [place] [address], ? [place] [address] Procedure Note Bc Mathews DO - 10/22/2024 [facility] GI Patient Name: James Hammond Procedure Date: 10/22/2024 2:56 PM Date of : 1970 Age: 54 Gender: Male Note Status: Finalized Attending MD: Bc Mathews DO, [id number] Procedure Date No Time: 10/22/2024 Procedure: Colonoscopy Indications: Screening in patient at increased risk: Colorectal cancer in mother before age 60 Providers: Bc Mathews DO Referring MD: Bc Mathews DO Medicines: Monitored Anesthesia Care Complications: No immediate complications. Estimated blood loss: Minimal. Estimated Blood Loss: Estimated blood loss was minimal. Procedure: Pre-Anesthesia Assessment: - - Prior to the procedure, a History and Physicalwas performed, and patient medications and allergieswere reviewed. The patient is competent. The risks and benefits of the procedure and the sedation optionsand risks were discussed with the patient. Allquestions were answered and informed consent was obtained. Patient identification and proposed procedure were verified by the physician, the nurse, the anesthesiologist, the glassblower and thetechnician in the pre-procedure area in the endoscopy suite. Mental Status Examination: alert and oriented.Airway Examination: normal oropharyngeal airway and neck mobility. Respiratory Examination: clear to auscultation. CV Examination: normal. Prophylactic Antibiotics: The patient does not requireprophylactic antibiotics. Prior Anticoagulants: The patient has taken no anticoagulant or antiplatelet agents. ASA Grade Assessment: II - A patient with severesystemic disease. After reviewing the risks and benefits,the patient was deemed in satisfactory condition to undergo the procedure. The anesthesia plan was touse monitored anesthesia care (MAC). Immediately priorto administration of medications, the patient was re-assessed for adequacy to receive sedatives. The heart rate, respiratory rate, oxygen saturations, blood pressure, adequacy of pulmonary ventilation,and response to care were monitored throughout the procedure. The physical status of the patient was re-assessed after the procedure. After I obtained informed consent, the scope was passed under direct vision. Throughout theprocedure, the patient's blood pressure, pulse, and oxygen saturations were monitored continuously. The Colonoscope was introduced through the anus and advanced to the cecum, identified by appendiceal orifice and ileocecal valve. The colonoscopy was performed without difficulty. The patient tolerated the procedure well. The quality of the bowel preparation was good. Findings: Hemorrhoids were found on perianal exam. Three sessile polyps were found in the sigmoidcolon and ascending colon. The polyps were 5 to 8 mm in size. These polyps were removed with a cold snare. Resection and retrieval were complete. Verificationof patient identification for the specimen was done. Estimated blood loss was minimal. A 3 mm polyp was found in the transverse colon. The polyp was sessile. The polyp was removed with ajumbo cold forceps. Resection and retrieval werecomplete. Verification of patient identification for the specimen was done. Estimated blood loss wasminimal. The exam was otherwise without abnormality ondirect and retroflexion views. Procedure Code(s): --- Professional --- 63321, Colonoscopy, flexible; with removal of tumor(s), polyp(s), or other lesion(s) by snare technique 69925, 59, Colonoscopy, flexible; with biopsy,single or multiple Diagnosis Code(s): --- Professional --- D12.3, Benign neoplasm of transverse colon (hepatic flexure or splenic flexure) D12.2, Benign neoplasm of ascending colon D12.5, Benign neoplasm of sigmoid colon K64.9, Unspecified hemorrhoids Z80.0, Family history of malignant neoplasm of digestive organs CPT copyright 2020 [employer]. All rights reserved. The codes documented in this report are preliminary and upon welder plastic reviewmay be revised to meet current compliance requirements. BC Mathews DO 10/22/2024 3:21:59 PM This report has been signed electronically.Bc Mathews DO Number of Addenda: 0 Note Initiated On: 10/22/2024 2:56 PM Scope Withdrawal Time: 0 hours 6 minutes 15 seconds Scope In: 3:09:11 PM Scope Out: 3:19:28 PM Endoscopy Department at [facility] - [address] [place] [phone] IMPRESSION: - Hemorrhoids found on perianal exam. - Three 5 to 8 mm polyps in the sigmoid colon andin the ascending colon, removed with a cold snare. Resected and retrieved. - One 3 mm polyp in the transverse colon, removedwith a jumbo cold forceps. Resected and retrieved. - The examination was otherwise normal on directand retroflexion views. Recommendation: - - Discharge patient to home. - High fiber diet. - Continue present medications. - Await pathology results. - Repeat colonoscopy for surveillance based on pathology results. Bc Mathews DO GI~PROCEDURE ORDERABLES Final Re sult * Tissue exam (10/22/2024 3:11 PM EDT) Final Diagnosis A. Polyps (x2 per specimen label), sigmoid colon, polypectomy: - Hyperplastic polyp(s) (two fragments). B. Polyp, ascending colon, polypectomy: - Tubular adenoma. C. Polyp, transverse colon, polypectomy: - Sessile serrated lesion, negative for dysplasia. Note: Multiple additional levels were examined for specimens A and C. 10/24/2024 10:49 AM EDT [facility] Comment Medical Donation Professional slide(s) from this case have been presented at Anatomic Pathology Intradepartmental Review Conference on 10/23/24. 10/24/2024 10:49 AM T [facility] Gross Description A. Large Intestine, Sigmoid Colon, polyps x2: Labeled polyps x 2 Sig colon . Received in green-stained formalin are two soft vanessa to pink polypoid tissues measuring approximately 0.25 cm in greatest diameter, one of which is friable, with minimal attached fecal/food debris, which are inked blue, wrapped in paper and submitted in toto in one cassette, one piece, multiple levels. B. Large Intestine, Right/Ascending Colon, polyp x1: Labeled polyp x 1 ascend colon . Received in formalin are two soft, pink to red polypoid tissues measuring approximately 0.25 cm in greatest diameter, which are wrapped in paper and submitted in toto in one cassette, two pieces, multiple levels. C. Large Intestine, Transverse Colon, polyp x1: Labeled polyp x 1 trans colon . Received in formalin is a soft, vanessa, 0.4 cm in greatest diameter polypoid tissue which is inked blue at the base, wrapped in paper and submitted in toto in one cassette, one piece, multiple levels. TS 10/24/2024 10:49 AM [facility] Disclaimer Unless otherwise specified, all tissue is 10% NB formalin fixed and paraffin embedded. 10/24/2024 10:49 AM EDT [facility] Tissue Sigmoid colon structure / Unknown 10/22/2024 3:11 PM EDT 10/22/2024 3:47 PM EDT Tissue specimen (specimen) Ascending colon structure / Unknown 10/22/2024 3:14 PM EDT 10/22/2024 3:47 PM EDT Tissue specimen (specimen) Transverse colon structure / Unknown 10/22/2024 3:16 PM EDT 10/22/2024 3:47 PM EDT Bc Mathews DO LAB PATHOLOGY ORDERABLES Final R esult [facility] [address] [place] [address], * Injection tendon or ligament (09/11/2024 3:45 PM EST) Pollo Orta DPM - 09/11/2024 3:45 PM EST Pollo Alcantara DPM ? 09/11/2024 ??4:26 PM Injection tendon or ligament Indications: pain Details: 25 G needle Medications: 0.5 mL lidocaine (PF) 1 %; 20 mg triamcinolone acetonide 40 mg/mL Informed Consent: ??Site: ??Foot ligament tendon Pollo Alcantara DPM IN CLINIC/BEDSIDE ORDERAB LES Final Result from Last 3 Months Insurance [facility] Care Teams Palliative Medicine Physician Relationship Specialty Start Date End Date Radha Cook MD [address] [phone] PCP - General 05/24/24
== END 2024-12-05 16:03 | disposition home or self-care (01) ==
LOC: HO.HKAS 15:51
PROVIDERS: PCP Internal Medicine; Visit Provider Internal Medicine Nephrology
DX: R09.89 Other specified symptoms and signs involving the circulatory and respiratory systems (principal)
CPT/HCPCS: 99214